=== PATIENT | male | born 1975 | race Caucasian/White ===

== ENCOUNTER 2016-06-16 19:03 | Emergency (ER) | payer SELFPAY ==
[~2016-06-16 19:03] MED LIST: ADVIL200 M1 PO; ANUSOL HC,ANUCO25 MG PO; ATIVAN1 MG PO; AUGMENTIN 875 M1 TAB PO; AUGMENTIN 875875 MG PO; CIPRO500 MG PO; CLEOCIN150 MG PO; CYCLOBENZAPRINE10 MG PO; DICLOFENAC POTA50 MG PO; FLAGYL500 MG PO; HYDROCODONE BIT1 T11 PO; IBU800 MG PO; MEDROL DOSEPAK4 MG PO; Motrin,Rufen800 MG PO; NAPROSYN500 MG PO; NKHM; PAXIL20 M1 PO; PEN-VEE K500 MG PO; PERCOCET 325 MG1 TA2 PO; PERCOCET 325 MG1 TA5 PO; PERCOCET 325 MG1 TA7 PO; PHENERGAN25 M1 PO; PRINIVIL10 MG PO; SYNTHROID,LEVO25 MCG PO; TRAMADOL HCL50 MG PO; ULTRAM50 MG PO; VICODIN ES 7501 TAB PO; VISTARIL25 MG PO; Veetids,V-Cill500 MG PO; Vicodin 5/500 505 MG PO
[2016-06-16 19:24] VITALS: BP 134/88
[2016-06-16 19:30] LABS: BASO # 0.1 10*3/uL (0.0-0.1); BASO % 0.7 % (0.0-1.0); EOS # 0.2 10*3/uL (0.0-0.4); EOS % 1.5 % (1.0-4.0); HEMATOCRIT 42.1 % (42.0-52.0); HEMOGLOBIN 14.3 g/dl (14.0-18.0); IG # 0.1 10*3/uL (0.0-0.1); LYMPH # 3.7 10*3/uL (1.3-4.4); MEAN CELL VOLUME 87.2 fl (80.0-94.0); MEAN CORPUSCULAR HGB 29.6 pg (27.0-31.0); MEAN PLATELET VOLUME 9.6 fl (9.6-12.3); MONO % 8.3 % (3.0-9.0); NEUT # 7.2 10*3/uL (2.3-7.9); PLATELET COUNT AUTOMATED 394 10*3/uL (130-400); RED BLOOD COUNT 4.83 10*6/uL (4.50-5.90); RED CELL DISTRI WIDTH 12.5 % (0-14.5); WHITE BLOOD COUNT 12.3 10*3/uL (4.8-10.8)
[2016-06-16 19:42] LABS: BUN 14 mg/dl (7-24); CARBON DIOXIDE 25 mmol/L (21-32); CHLORIDE 104 mmol/L (98-107); EST GLOM FILT AFRICAN AMERICAN > 60 ml/min; GLUCOSE 139 mg/dL (65-99); POTASSIUM 3.7 mmol/L (3.5-5.1); SODIUM 141 mmol/L (136-145)
[2016-06-16] MEDS ORDERED: PEPCID20 MG PO (23:37)
[2016-06-16] MEDS ORDERED: EC NAPROSYN500 MG PO (23:37)
== END 2016-06-16 23:58 | disposition home or self-care (01) ==
LOC: ED 19:03
PROVIDERS: Emergency Medicine
DX: R07.9 Chest pain, unspecified (principal); I10 Essential (primary) hypertension; Z90.89 Acquired absence of other organs; Z98.890 Other specified postprocedural states; Z88.6 Allergy status to analgesic agent; Z88.5 Allergy status to narcotic agent